=== PATIENT | male | born 1960 | race African-American/Black ===

== ENCOUNTER 2018-04-03 21:24 | Emergency (ER) | payer OTHER ==
[~2018-04-03] VITALS: Ht 162.6 cm; Wt 68.0 kg
[2018-04-03 21:30] VITALS: BP 152/82; TEMP 99.3
== END 2018-04-03 22:30 | disposition home or self-care (01) ==
LOC: ED 21:24
DX: J02.8 Acute pharyngitis due to other specified organisms (principal)
CPT/HCPCS: 99282

== ENCOUNTER 2018-04-05 22:05 | Emergency (ER) | payer OTHER ==
[~2018-04-05] VITALS: Ht 162.6 cm; Wt 68.0 kg
[2018-04-06 00:06] VITALS: BP 125/79; TEMP 98
== END 2018-04-06 00:07 | disposition home or self-care (01) ==
LOC: ED 22:05
DX: J02.8 Acute pharyngitis due to other specified organisms (principal)
CPT/HCPCS: 99282